=== PATIENT | female | born 1950 | race Caucasian/White ===

== ENCOUNTER 2018-10-18 20:01 | Inpatient (IN) ==
[2018-10-18 23:22] LABS: Basophils % 0.1 %; Hemoglobin 11.8 g/dL (11.5-15.4); Immature Granulocytes % 0.5 % (0-4); Lymphocytes # 0.3 K/mcL (0.6-4.6); Mean Corpuscular HGB Conc 33.7 g/dL (31.6-35.5); Mean Corpuscular Hemoglobin 31.4 pg (28.0-33.3); Mean Corpuscular Volume 93.1 fL (83.0-100.0); Mean Platelet Volume 10.9 fL (9.4-12.4); Monocytes # 0.2 K/mcL (0.0-1.3); Monocytes % 2.1 %; Neutrophils # 9.3 K/mcL (1.6-8.9); Platelet Count 214 K/mcL (140-400); Red Blood Count 3.76 M/mcL (3.82-4.97); Red Cell Distribution Width 11.7 % (11.5-14.5); Segmented Neutrophils % 94.3 %
[2018-10-18 23:33] LABS: INR 1.1; Prothrombin Time 12.9 Seconds (9.4-12.1)
[2018-10-18 23:36] LABS: Activated Partial Thrombo Time 28.4 Seconds (26.0-36.0)
[2018-10-18 23:41] LABS: Alanine Aminotransferase 18 Units/L (7-52); Albumin 3.7 g/dL (3.5-5.7); Albumin/Globulin Ratio 1.1 (1.1-2.2); Alkaline Phosphatase 60 Units/L (34-104); Aspartate Amino Transferase 16 Units/L (13-39); BUN/Creatinine Ratio 13 (6-26); Bilirubin,Direct 0.1 mg/dL (0.0-0.2); Bilirubin,Indirect 0.3 mg/dL (0.0-1.2); Bilirubin,Total 0.4 mg/dL (0.3-1.0); Blood Urea Nitrogen 12 mg/dL (8-23); Calcium 8.7 mg/dL (8.6-10.3); Carbon Dioxide 21 mEq/L (23-29); Chloride 100 mEq/L (98-107); Globulin 3.4 g/dL (2.4-3.5); Glucose 319 mg/dL (70-105); Osmolality,Calculated 294 (280-300); Potassium 3.3 mEq/L (3.5-5.1); Sodium 136 mEq/L (136-145); Total Protein 7.1 g/dL (6.4-8.9); eGFR For Non-African Americans > 60 (> 60)
[2018-10-18] MEDS ORDERED: Ipratropium/Albuterol Neb 3 ML IH ONE (23:45)
[2018-10-18] MEDS ORDERED: Potassium Chloride Elixir 20 MEQ/15 ML UDC PO ONE (23:45)
[2018-10-18] MEDS ORDERED: *HR* HYDROcodone/Acet 5/325 mg TABLET PO PRN (23:57)
--- NOTE | 2018-10-19 01:37 | Internal Med History&Physical ---
Date of Encounter: 10/19/18 Time of Encounter: 01:35 Internal Medicine - H&P: HPI Chief complaint: Weakness Admitted From: Home Plans for Post Hospital Care: Home History of present illness: Rani De Jesus is a 68 year old woman with a history of psoriatic arthritis who presents on transfer from [place] emergency room where she went with 4 days of productive cough, eyes malaise, poor appetite and chest discomfort. She was seen at her primary care physicians office yesterday and given breathing treatments due to these complaints but was also noted that her blood pressure was low and her heart rate high so she was sent to the emergency room for further evaluation. On arrival there she was hemodynamically stable but complained of feeling tired. She was seen to have an elevated leukocyte cou nt and increase in her serum creatinine from her baseline. Chest x-ray was suggestive of a left sided infiltrate concerning for developing pneumonia and she was started on fluids and antibiotics. He is transferred here for further care. On my assessment she complains of feeling thirsty and dehydrated and just generally fatigued. She remains on 2.5 mg prednisone daily for her rheumatologic condition as well as infliximab infusions every 2 months. Past Med Surg Social Fam HX - Past Medical History Medical history: arthritis, COPD, hyperlipidemia, hypertension Additional medical history: lung cancer Psychiatric history: no psych history - Past Surgical History Surgical History: hysterectomy Additional surgical history: back surgery, right upper lobectomy - Social History Smoking Status: Former smoker Smokeless Tobacco Status: No Alcohol use: occasionally Drug use: none - Family History Mother Living Status: Hx Family Cardiac Disorders: Yes Internal Medicine - H&P: Meds Atorvastatin [Lipitor] 10 mg PO HS 08/23/15 [History] Brimonidine Tartrate/Timolol [Combigan Eye Drops] 2 drp OP DAILY 08/23/15 [History] Hydrocodone/Acetaminophen [[place] 5-325 Tablet] 1 tab PO Q6H PRN #10 tab 08/23/15 [Rx] InFLIXimab [Remicade (For Outpatient Infusion)] 0 mg IV Q8W 08/23/15 [History] Lisinopril/Hydrochlorothiazide [Zestoretic 10-12.5 mg Tablet] 1 each PO DAILY 08/23/15 [History] Omeprazole [PriLOSEC] 20 mg PO DAILY 08/23/15 [History] TraMADol [Ultram] 100 mg PO DAILY 08/23/15 [History] predniSONE [Prednisone] 2.5 mg PO DAILY 08/23/15 [History] Allergy/AdvReac Type Severity Reaction Status Date / Time Amoxicillin [From Augmentin] Allergy Hives Verified 08/23/15 18:12 clavulanic acid Allergy Hives Verified 08/23/15 18:12 [From Augmentin] clindamycin Allergy Hives Verified 08/23/15 18:12 All Systems PM: A 10-system review of systems was performed and is negative for pertinent findings except as documented above in the HPI. - Constitutional Vitals: Temp Pulse Resp BP Pulse Ox 97.5 F L 101 14 154/76 97 10/18/18 23:08 10/18/18 23:08 10/18/18 23:08 10/18/18 23:08 10/18/18 23:08 Exam: Vitals: Reviewed General: Well developed woman lying in bed notably asthenic Skin: Warm and supple HEENT: Slightly dry mucous membranes. No conjunctivae pallor. Neck: No lymphadenopathy. No JVD. No carotid bruits. No palpable thyroid. Chest: Normal thoracic expansion. Scattered wheezes noted. Heart: Normal S1 & S2; rhythmic. No rubs or murmurs. Abdomen: Non-distended, soft and non-tender to palpation. No peritoneal reaction. Extremities: No clubbing, cyanosis or edema. No calf tenderness. Normal distal pulses. Neurological: Awake, alert and oriented to person, place and time. No focal deficits. Psych: Affect appropriate. Internal Med - H&P Results - Labs CBC & Chem 7: 10/18/18 23:08 10/18/18 23:08 Labs: Short CBC 10/18/18 Range/Units 23:08 WBC 9.8 (4.3-11.1) K/mcL Hgb 11.8 (11.5-15.4) g/dL Hct 35.0 L (35.3-44.9) % Plt Count 214 (140-400) K/mcL Neutrophils # 9.3 H (1.6-8.9) K/mcL BMP 10/18/18 23:08 Sodium 136 Potassium 3.3 L Chloride 100 Carbon Dioxide 21 L BUN 12 Creatinine 0.89 Glucose 319 H Calcium 8.7 Liver Function 01/03/19 Range/Units 23:08 Total Bilirubin 0.4 (0.3-1.0) mg/dL Direct Bilirubin 0.1 (0.0-0.2) mg/dL AST 16 (13-39) Units/L ALT 18 (7-52) Units/L Alkaline Phosphatase 60 (34-104) Units/L Albumin 3.7 (3.5-5.7) g/dL - Assessment and plan (1) Pneumonia Current Visit: Yes Status: Acute Assessment and plan: The patient reports respiratory symptoms with sick contacts; has an infiltrate noted on xray and lab studies suggestive of infection. This is community acq uired. Will continue levofloxacin daily. Sputum culture should be obtained. Urine Legionella/Strep Ag ordered. Qualifiers: Pneumonia type: due to unspecified organism Laterality: left Lung location: lower lobe of lung Qualified Code(s): J18.1 - Lobar pneumonia, unspecified organism (2) Sepsis Current Visit: Yes Status: Acute Assessment and plan: As evidenced by tachycardia, lactic acidemia and leukocytosis. Concern for pulmonary source. Cultures and fluids administered accordingly. Empiric abx started as indicated. Qualifiers: Sepsis type: sepsis due to unspecified organism Qualified Code(s): A41.9 - Sepsis, unspecified organism (3) Acute kidney injury (nontraumatic) Current Visit: Yes Status: Acute Assessment and plan: Likely secondary to volume depletion as her family members report reduced oral intake over the past few days. This coupled with her initial sepsis presentation. Will replete with volume and re-evaluate. (4) Dehydration Current Visit: Yes Status: Acute Assessment and plan: As evidenced on clinical exam and contributing factor to TERESE. IVF ordered. Regular diet. (5) Psoriatic arthritis Current Visit: Yes Status: Acute Assessment and plan: Continue daily prednisone to avoid adrenal insufficiency. She will continue infliximab as OP. (6) DVT prophylaxis Current Visit: Yes Status: Acute Assessment and plan: SubQ heparin. - Time Spent With Patient Total time spent is greater than 50% in coordination of care (as documented) at patient's floor/unit and/or counseling patient: Greater than 35 minutes
[2018-10-19] MEDS: Ringers Solution, Lactated 1,000 ML IVC SCH ×2 (01:42→09:29)
[2018-10-19 03:16] LABS: Basophils % 0.1 %; Hematocrit 34.2 % (35.3-44.9); Hemoglobin 11.4 g/dL (11.5-15.4); Immature Granulocytes % 0.5 % (0-4); Lymphocytes # 0.4 K/mcL (0.6-4.6); Lymphocytes % 4.9 %; Mean Corpuscular HGB Conc 33.3 g/dL (31.6-35.5); Mean Corpuscular Hemoglobin 31.1 pg (28.0-33.3); Mean Corpuscular Volume 93.2 fL (83.0-100.0); Mean Platelet Volume 10.7 fL (9.4-12.4); Monocytes # 0.3 K/mcL (0.0-1.3); Neutrophils # 7.7 K/mcL (1.6-8.9); Platelet Count 227 K/mcL (140-400); Red Blood Count 3.67 M/mcL (3.82-4.97); Red Cell Distribution Width 11.6 % (11.5-14.5); Segmented Neutrophils % 91.5 %
[2018-10-19 03:36] LABS: BUN/Creatinine Ratio 15 (6-26); Blood Urea Nitrogen 12 mg/dL (8-23); Carbon Dioxide 23 mEq/L (23-29); Chloride 102 mEq/L (98-107); Glucose 286 mg/dL (70-105); Osmolality,Calculated 292 (280-300); Potassium 4.3 mEq/L (3.5-5.1); Sodium 136 mEq/L (136-145); eGFR For Non-African Americans > 60 (> 60)
[2018-10-19] MEDS: *HR* Heparin 5,000 UNIT/ML VIAL SQ SCH ×2 (05:40→16:39)
[2018-10-19] MEDS ORDERED: Levofloxacin 500 MG/100 ML 500 MG/100 ML BAG IVPB SCH (09:00)
[2018-10-19] MEDS ORDERED: predniSONE 5 MG TABLET PO SCH (09:00)
--- NOTE | 2018-10-19 09:33 | Internal Med Progress Note ---
<Asif Becker R - Last Filed: 10/19/18 11:10> Hospitalist Progress Note - Encounter Date of Encounter: 10/19/18 Time of Encounter: 08:45 - Subjective Interval History: Patient was seen and evaluated at the bedside this morning. She reports feeling quite a bit better than when she presented yesterday. Cough is less productive but still present. Denies n/v, change in bowels, chest pain, shortness of breath, dizziness. - Exam Vitals: Temp Pulse Resp BP Pulse Ox 97.3 F L 69 17 100/67 97 10/19/18 07:32 10/19/18 07:32 10/19/18 07:32 10/19/18 07:32 10/19/18 07:32 Exam: General: Seated upright in bed, no apparent distress. HEENT: Atraumatic, Pupils PERRLA, moist mucous membranes Neck: soft, no lymphadenopathy Cardio: Regular rate and rhythm, no murmurs, rubs or gallops Respiratory: Clear to auscultation bilateral, no crackles, wheeze, or rhonchi Abdomen: soft, nontender, nondistended Extremities: No swelling or edema Neuro: Alert and oriented to person, place, and time, no focal deficits Psych: appropriate mood and affect - Assessment and Plan (1) Sepsis Current Visit: Yes Status: Acute Assessment and Plan: Met sepsis criteria at presentation with Lactic acidosis, tachycardia, leukocytosis. Chest x-ray concerning for consolidation. Improved today with IV fluids and antibiotics Patient is on ocean biologist prednisone 2.5 mg daily, Will follow BP closely and give stress steroids if indicated (2) Pneumonia Current Visit: Yes Status: Acute Assessment and Plan: Chest xray concerning for consolidation of the the left perihilar region on PA radiograph. Negative influenza Suspect community acquired pneumonia Plan: Continue IV antibiotics with Levoquin, will transition to PO prior to discharge Has received fluid resuscitation, will decrease IV fluids Sputum culture pending Legionella/strep pneumo antigens pending (3) Acute kidney injury (nontraumatic) Current Visit: Yes Status: Acute Assessment and Plan: TERESE on admission with creatinine of 1.2 Suspect this is secondary to dehydration from poor oral intake in recent days. Resolved with IV fluids, creatinine 0.82 Plan: Continue to follow Scr and urine output (4) Dehydration Current Visit: Yes Status: Acute Assessment and Plan: Dehydration with TERESE upon admission Has been volume resuscitated Tolerating oral intake, will decrease IVF rate. (5) Psoriatic arthritis Current Visit: Yes Status: Acute Assessment and Plan: Continue 2.5 mg prednisone Stress dose steroids if clinical decline (6) COPD (chronic obstructive pulmonary disease) Current Visit: Yes Status: Acute Assessment and Plan: COPD without exacerbation, no home oxygen requirement PRN albuterol at home Plan: Duonebs q6h PRN (7) Hypertension Current Visit: Yes Status: Acute Assessment and Plan: Continue home lisinopril/HCTZ (8) DVT prophylaxis Current Visit: Yes Status: Acute Assessment and Plan: SubQ heparin 5000 units SQ TID (9) Diabetes mellitus Current Visit: Yes Status: Acute Assessment and Plan: Type 2 diabetic on Glipizide at home Plan: Hold home glipizide Start Sliding scale insulin ACHS Will follow and add basal insulin for adequate glycemic control if needed - Time Spent with Patient Total time spent is greater than 50% in coordination of care (as documented) at patient's floor/unit and/or counseling patient: Internal Medicine: Result - Labs CBC & Chem 7: 10/19/18 03:04 10/19/18 03:04 Labs: Short CBC 10/18/18 10/19/18 Range/Units 23:08 03:04 WBC 9.8 8.4 (4.3-11.1) K/mcL Hgb 11.8 11.4 L (11.5-15.4) g/dL Hct 35.0 L 34.2 L (35.3-44.9) % Plt Count 214 227 (140-400) K/mcL Neutrophils # 9.3 H 7.7 (1.6-8.9) K/mcL BMP 10/18/18 10/19/18 23:08 03:04 Sodium 136 136 Potassium 3.3 L 4.3 D Chloride 100 102 Carbon Dioxide 21 L 23 BUN 12 12 Creatinine 0.89 0.82 Glucose 319 H 286 H Calcium 8.7 9.0 Liver Function 10/18/18 Range/Units 23:08 Total Bilirubin 0.4 (0.3-1.0) mg/dL Direct Bilirubin 0.1 (0.0-0.2) mg/dL AST 16 (13-39) Units/L ALT 18 (7-52) Units/L Alkaline Phosphatase 60 (34-104) Units/L Albumin 3.7 (3.5-5.7) g/dL - ABG Interpretation ABG results: PT/INR, D-dimer PT 12.9 Seconds (9.4-12.1) H 10/18/18 23:08 Consult Discharge Plan - Plan Referrals: Betty Gonzalez, SIGN LANGUAGE INSTRUCTOR [Primary Care Provider] - <LesleyelmcDominic Césareugenia - Last Filed: 10/19/18 13:44> Hospitalist Progress Note - Encounter Date of Encounter: 10/19/18 - Exam Vitals: Temp Pulse Resp BP Pulse Ox 98.1 F 94 18 137/67 95 10/19/18 11:06 10/19/18 11:06 10/19/18 11:06 10/19/18 11:06 10/19/18 11:06 - Assessment and Plan (1) Sepsis Current Visit: Yes Status: Acute (2) Pneumonia Current Visit: Yes Status: Acute (3) Acute kidney injury (nontraumatic) Current Visit: Yes Status: Acute (4) Dehydration Current Visit: Yes Status: Acute (5) Psoriatic arthritis Current Visit: Yes Status: Acute (6) DVT prophylaxis Current Visit: Yes Status: Acute (7) COPD (chronic obstructive pulmonary disease) Current Visit: Yes Status: Acute (8) Hypertension Current Visit: Yes Status: Acute (9) Diabetes mellitus Current Visit: Yes Status: Acute - Time Spent with Patient Total time spent is greater than 50% in coordination of care (as documented) at patient's floor/unit and/or counseling patient: Internal Medicine: Result - Labs CBC & Chem 7: 10/19/18 03:04 10/19/18 03:04 Labs: Short CBC 10/18/18 10/19/18 Range/Units 23:08 03:04 WBC 9.8 8.4 (4.3-11.1) K/mcL Hgb 11.8 11.4 L (11.5-15.4) g/dL Hct 35.0 L 34.2 L (35.3-44.9) % Plt Count 214 227 (140-400) K/mcL Neutrophils # 9.3 H 7.7 (1.6-8.9) K/mcL BMP 10/18/18 10/19/18 23:08 03:04 Sodium 136 136 Potassium 3.3 L 4.3 D Chloride 100 102 Carbon Dioxide 21 L 23 BUN 12 12 Creatinine 0.89 0.82 Glucose 319 H 286 H Calcium 8.7 9.0 Liver Function 10/18/18 Range/Units 23:08 Total Bilirubin 0.4 (0.3-1.0) mg/dL Direct Bilirubin 0.1 (0.0-0.2) mg/dL AST 16 (13-39) Units/L ALT 18 (7-52) Units/L Alkaline Phosphatase 60 (34-104) Units/L Albumin 3.7 (3.5-5.7) g/dL - ABG Interpretation ABG results: PT/INR, D-dimer PT 12.9 Seconds (9.4-12.1) H 10/18/18 23:08 - Attending Attestation I examined this patient and my medical decision-making was reviewed with the Resident Physician. I agree with the documented findings, disposition and treatment plan as described except to the extent set forth below. Patient doing well, no acute events. Denies CP, fevers/chills, n/v. No respiratory distress. Physical exam, patient no acute distress, faint wheezing. Vitals: reviewed, Labs: reviewed, renal function now normal. For sepsis secondary to pneumonia, continue Levaquin, Duo Nebs, follow-up blood cultures. <Asif Becker - Last Filed: 10/19/18 11:10> (1) Sepsis Qualifiers: Sepsis type: sepsis due to unspecified organism Qualified Code(s): A41.9 - Sepsis, unspecified organism (2) Pneumonia Qualifiers: Pneumonia type: due to unspecified organism Laterality: left Lung location: lower lobe of lung Qualified Code(s): J18.1 - Lobar pneumonia, unspecified organism (6) COPD (chronic obstructive pulmonary disease) Qualifiers: COPD type: unspecified COPD Qualified Code(s): J44.9 - Chronic obstructive pulmonary disease, unspecified (9) Diabetes mellitus Qualifiers: Diabetes mellitus type: type 2 Diabetes mellitus ocean biologist insulin use: wi thout nursing home use Diabetes mellitus complication status: with unspecified complications Qualified Code(s): E11.8 - Type 2 diabetes mellitus with u nspecified complications <Arielle Arellano - Last Filed: 10/19/18 13:44> (1) Sepsis Qualifiers: Sepsis type: sepsis due to unspecified organism Qualified Code(s): A41.9 - Sepsis, unspecified organism (2) Pneumonia Qualifiers: Pneumonia type: due to unspecified organism Laterality: left Lung location: lower lobe of lung Qualified Code(s): J18.1 - Lobar pneumonia, unspecified organism (7) COPD (chronic obstructive pulmonary disease) Qualifiers: COPD type: unspecified COPD Qualified Code(s): J44.9 - Chronic obstructive pulmonary disease, unspecified (9) Diabetes mellitus Qualifiers: Diabetes mellitus type: type 2 Diabetes mellitus ocean biologist insulin use: without ocean biologist use Diabetes mellitus complication status: with unspecified complications Qualified Code(s): E11.8 - Type 2 diabetes mellitus with unspecified complications
[2018-10-19] MEDS ORDERED: Dextrose Gel 15 GM/37.5 ML TUBE PO PRN ×2 (09:34)
[2018-10-19] MEDS ORDERED: *HR* Dextrose 50 % in Water (Syg) 50 ML SYRINGE IVP PRN (09:34)
[2018-10-19] MEDS ORDERED: D5% in Water 1,000 ML IVC PRN (09:34)
[2018-10-19 11:11] LABS: Estimated Average Glucose 163 mg/dl; Hemoglobin A1C 7.3 %
[2018-10-19] MEDS: Insulin LISPRO 300 UNITS/3 ML VIAL SQ SCH ×3 (12:13→20:57)
[2018-10-19] MEDS: Ipratropium/Albuterol Neb 3 ML IH PRN (14:26)
[2018-10-20] MEDS: Ipratropium/Albuterol Neb 3 ML IH PRN ×2 (04:16→10:56)
[2018-10-20] MEDS: *HR* Heparin 5,000 UNIT/ML VIAL SQ SCH ×2 (05:39→17:24)
[2018-10-20 07:33] LABS: Basophils % 0.2 %; Eosinophils % 0.3 %; Hematocrit 33.2 % (35.3-44.9); Hemoglobin 11.1 g/dL (11.5-15.4); Immature Granulocytes % 0.5 % (0-4); Lymphocytes # 1.6 K/mcL (0.6-4.6); Mean Corpuscular HGB Conc 33.4 g/dL (31.6-35.5); Mean Corpuscular Hemoglobin 30.7 pg (28.0-33.3); Mean Corpuscular Volume 91.7 fL (83.0-100.0); Mean Platelet Volume 10.9 fL (9.4-12.4); Monocytes # 0.9 K/mcL (0.0-1.3); Neutrophils # 7.4 K/mcL (1.6-8.9); Platelet Count 270 K/mcL (140-400); Red Blood Count 3.62 M/mcL (3.82-4.97); Red Cell Distribution Width 11.8 % (11.5-14.5)
[2018-10-20 07:47] LABS: BUN/Creatinine Ratio 21 (6-26); Blood Urea Nitrogen 14 mg/dL (8-23); Calcium 9.5 mg/dL (8.6-10.3); Carbon Dioxide 25 mEq/L (23-29); Chloride 103 mEq/L (98-107); Glucose 232 mg/dL (70-105); Osmolality,Calculated 294 (280-300); Potassium 3.8 mEq/L (3.5-5.1); Sodium 138 mEq/L (136-145); eGFR For Non-African Americans > 60 (> 60)
[2018-10-20] MEDS: Lisinopril-HCTZ 20-12.5mg TABLET PO SCH (08:31)
[2018-10-20] MEDS: Levofloxacin 750 MG/150 ML 750 MG/150 ML BAG IVPB SCH (08:32)
[2018-10-20] MEDS: Insulin LISPRO 300 UNITS/3 ML VIAL SQ SCH ×4 (08:33→21:10)
[2018-10-20] MEDS ORDERED: predniSONE 5 MG TABLET PO SCH (09:00)
--- NOTE | 2018-10-20 11:40 | Internal Med Progress Note ---
Hospitalist Progress Note - Encounter Date of Encounter: 10/20/18 Time of Encounter: 11:39 - Subjective Interval History: No acute events. Patient having several coughing episodes. Still some dyspnea, but had slight improvement. - Exam Vitals: Temp Pulse Resp BP Pulse Ox 98.1 F 95 16 151/76 97 10/20/18 10:33 10/20/18 10:33 10/20/18 10:33 10/20/18 10:33 10/20/18 10:33 Exam: General: Seated upright in bed, no apparent distress. HEENT: Atraumatic, Pupils PERRLA, moist mucous membranes Neck: soft, no lymphadenopathy Cardio: Regular rate and rhythm, no murmurs, rubs or gallops Respiratory: There is more prominent diffuse wheezing today. Abdomen: soft, nontender, nondistended Extremities: No swelling or edema Neuro: Alert and oriented to person, place, and time, no focal deficits Psych: appropriate mood and affect - Assessment and Plan (1) Sepsis Current Visit: Yes Status: Acute Assessment and Plan: Met sepsis criteria at presentation with Lactic acidosis, tachycardia, leukocytosis. Chest x-ray concerning for consolidation. Improved today with IV fluids and antibiotics Patient is on long-term prednisone 2.5 mg daily, Will follow BP closely and give stress steroids if indicated Still having significant wheezing despite Duo Nebs Will add Prednisone 40 mg daily for short burst Likely home tomorrow if blood cultures remain negative. (2) Pneumonia Current Visit: Yes Status: Acute Assessment and Plan: Chest xray concerning for consolidation of the the left perihilar region on PA radiograph. Negative influenza Suspect community acquired pneumonia Plan: Continue IV antibiotics with Levoquin, will transition to PO prior to discharge Has received fluid resuscitation, will decrease IV fluids Sputum culture pending Legionella/strep pneumo antigens pending (3) Acute kidney injury (nontraumatic) Current Visit: Yes Status: Acute Assessment and Plan: TERESE on admission with creatinine of 1.2 Suspect this is secondary to dehydration from poor oral intake in recent days. Resolved with IV fluids, creatinine 0.82 Plan: Continue to follow Scr and urine output (4) Dehydration Current Visit: Yes Status: Acute Assessment and Plan: Dehydration with TERESE upon admission Has been volume resuscitated Tolerating oral intake, will decrease IVF rate. (5) Psoriatic arthritis Current Visit: Yes Status: Acute Assessment and Plan: Continue 2.5 mg prednisone Stress dose steroids if clinical decline (6) DVT prophylaxis Current Visit: Yes Status: Acute Assessment and Plan: SubQ heparin 5000 units SQ TID (7) COPD (chronic obstructive pulmonary disease) Current Visit: Yes Status: Acute Assessment and Plan: COPD without exacerbation, no home oxygen requirement PRN albuterol at home Plan: Duonebs q6h PRN (8) Hypertension Current Visit: Yes Status: Acute Assessment and Plan: Continue home lisinopril/HCTZ (9) Diabetes mellitus Current Visit: Yes Status: Acute Assessment and Plan: Type 2 diabetic on Glipizide at home Plan: Hold home glipizide Start Sliding scale insulin ACHS Will follow and add basal insulin for adequate glycemic control if needed - Time Spent with Patient Total time spent is greater than 50% in coordination of care (as documented) at patient's floor/unit and/or counseling patient: Internal Medicine: Result - Labs CBC & Chem 7: 10/20/18 05:40 10/20/18 05:40 Labs: Short CBC 10/20/18 Range/Units 05:40 WBC 10.0 (4.3-11.1) K/mcL Hgb 11.1 L (11.5-15.4) g/dL Hct 33.2 L (35.3-44.9) % Plt Count 270 (140-400) K/mcL Neutrophils # 7.4 (1.6-8.9) K/mcL BMP 10/20/18 05:40 Sodium 138 Potassium 3.8 Chloride 103 Carbon Dioxide 25 BUN 14 Creatinine 0.67 Glucose 232 H Calcium 9.5 - ABG Interpretation ABG results: PT/INR, D-dimer PT 12.9 Seconds (9.4-12.1) H 10/18/18 23:08 Consult Discharge Plan - Plan Referrals: Betty Gonzalez, REPRESENTATIVE [Primary Care Provider] - (1) Sepsis Qualifiers: Sepsis type: sepsis due to unspecified organism Qualified Code(s): A41.9 - Sepsis, unspecified organism (2) Pneumonia Qualifiers: Pneumonia type: due to unspecified organism Laterality: left Lung location: lower lobe of lung Qualified Code(s): J18.1 - Lobar pneumonia, unspecified organism (7) COPD (chronic obstructive pulmonary disease) Qualifiers: COPD type: unspecified COPD Qualified Code(s): J44.9 - Chronic obstructive pulmonary disease, unspecified (9) Diabetes mellitus Qualifiers: Diabetes mellitus type: type 2 Diabetes mellitus long-term insulin use: without long-term use Diabetes mellitus complication status: with unspecified complications Qualified Code(s): E11.8 - Type 2 diabetes mellitus with unspecified complications
[2018-10-20] MEDS: predniSONE 20 MG TABLET PO SCH (14:06)
[2018-10-21 04:48] LABS: Basophils % 0.3 %; Hematocrit 33.8 % (35.3-44.9); Hemoglobin 11.6 g/dL (11.5-15.4); Immature Granulocytes % 0.8 % (0-4); Lymphocytes # 0.9 K/mcL (0.6-4.6); Mean Corpuscular HGB Conc 34.3 g/dL (31.6-35.5); Mean Corpuscular Hemoglobin 31.1 pg (28.0-33.3); Mean Corpuscular Volume 90.6 fL (83.0-100.0); Mean Platelet Volume 10.8 fL (9.4-12.4); Monocytes # 0.5 K/mcL (0.0-1.3); Neutrophils # 5.7 K/mcL (1.6-8.9); Platelet Count 295 K/mcL (140-400); Red Blood Count 3.73 M/mcL (3.82-4.97); Red Cell Distribution Width 11.8 % (11.5-14.5); Segmented Neutrophils % 78.9 %
[2018-10-21] MEDS: *HR* Heparin 5,000 UNIT/ML VIAL SQ SCH (05:39)
[2018-10-21] MEDS: Levofloxacin 750 MG/150 ML 750 MG/150 ML BAG IVPB SCH (07:51)
[2018-10-21] MEDS: Lisinopril-HCTZ 20-12.5mg TABLET PO SCH (07:56)
[2018-10-21] MEDS: predniSONE 20 MG TABLET PO SCH (07:56)
[2018-10-21] MEDS: Insulin LISPRO 300 UNITS/3 ML VIAL SQ SCH ×2 (07:58→12:07)
[2018-10-21] MEDS: Ipratropium/Albuterol Neb 3 ML IH PRN (08:11)
[2018-10-21 10:50] VITALS: BP 148/65
--- NOTE | 2018-10-21 11:27 | Discharge Summary ---
- NOTES TO OUTPATIENT PROVIDER Notes to Outpatient Provider: Prednisone taper on DC, need to monitor if patient continues to improve. Assess if patient should stay on infliximab, now that recovering from pneumonia. Orders not resulted at time of discharge: Pending orders 10/18/18 22:23 Culture,Sputum with Gram Stain [RM] Stat 10/18/18 23:08 Culture,Blood [BC] Stat 10/19/18 01:49 Legionella Antigen [RM] Stat Streptococcal pneumoniae urin antigen [S. Pneumoniae Antigen] [RM] Stat Date of Encounter: 10/21/18 Time of Encounter: 11:25 - Discharge Diagnosis (1) Sepsis Priority: Primary Status: Acute Qualifiers: Sepsis type: sepsis due to unspecified organism Qualified Code(s): A41.9 - Sepsis, unspecified organism (2) Pneumonia Priority: Secondary Status: Acute Qualifiers: Pneumonia type: due to unspecified organism Laterality: left Lung location: lower lobe of lung Qualified Code(s): J18.1 - Lobar pneumonia, unspecified organism (3) Acute kidney injury (nontraumatic) Priority: Secondary Status: Acute (4) Dehydration Priority: Secondary Status: Acute (5) Psoriatic arthritis Priority: Secondary Status: Acute (6) DVT prophylaxis Priority: Secondary Status: Acute (7) COPD (chronic obstructive pulmonary disease) Priority: Secondary Status: Acute Qualifiers: COPD type: unspecified COPD Qualified Code(s): J44.9 - Chronic obstructive pulmonary disease, unspecified (8) Hypertension Priority: Secondary Status: Acute Qualifiers: Hypertension type: essential hypertension Qualified Code(s): I10 - Essential (primary) hypertension (9) Diabetes mellitus Priority: Secondary Status: Acute Qualifiers: Diabetes mellitus type: type 2 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 She was seen at her primary care physicians office yesterday and given breathing treatments due to these complaints but was also noted that her blood pressure was low and her heart rate high so she was sent to the emergency room for further evaluation. On arrival there she was hemodynamically stable but complained of feeling tired. She was seen to have an elevated leukocyte count and increase in her serum creatinine from her baseline. Chest x-ray was suggestive of a left sided infiltrate concerning for developing pneumonia and she was started on fluids and antibiotics. He is transferred here for further care. She remains on 2.5 mg prednisone daily for her rheumatologic condition as well as infliximab infusions every 2 months. She was admitted for treatment of sepsis from pneumonia. She had TERESE which resolved after IV fluids. She was started on Levaquin for pneumonia, and also required Duo Nebs and Prednisone. She clinically improved. Blood cultures on admission were negative for greater than 48 hours and blood cultures obtained from [facility] were also negative. She was discharged home in stable condition to complete Levaquin and Prednisone taper. She has nebulizer at home instructed to take scheduled and space out as tolerated. - Time Spent with Patient Total time spent providing and/or coordinating discharge services: - Discharge Medications Home Medications: predniSONE [Prednisone] 2.5 mg PO DAILY 08/23/15 [History] Atorvastatin [Lipitor] 10 mg PO DAILY 10/19/18 [History] GlipiZIDE [Glipizide Xl] 5 mg PO DAILY 10/19/18 [History] InFLIXimab [Remicade] 0 mg IV Q8W 10/19/18 [History] Lisinopril-HCTZ 20-12.5 [Prinzide 20-12.5] 1 each PO DAILY 10/19/18 [History] Omeprazole [PriLOSEC] 20 mg PO DAILY 10/19/18 [History] Allergies/Adverse Reactions: Allergy/AdvReac Type Severity Reaction Status Date / Time Amoxicillin [From Augmentin] Allergy Severe Hives Verified 10/19/18 14:44 clavulanic acid Allergy Severe Hives Verified 10/19/18 14:44 [From Augmentin] clindamycin Allergy Severe Hives Verified 10/19/18 14:44 Date of admission: 10/19/18 14:49 Primary care physician: Betty Gonzalez CNP - Constitutional Vitals: Temp Pulse Resp BP Pulse Ox 98.2 F 100 17 148/65 98 10/21/18 10:49 10/21/18 10:49 10/21/18 10:49 10/21/18 10:49 10/21/18 10:49 Exam: General: Seated upright in bed, no apparent distress. HEENT: Atraumatic, Pupils PERRLA, moist mucous membranes Neck: soft, no lymphadenopathy Cardio: Regular rate and rhythm, no murmurs, rubs or gallops Respiratory: + wheezing scattered, slight improvement since yesterday exam. Abdomen: soft, nontender, nondistended Extremities: No swelling or edema Neuro: Alert and oriented to person, place, and time, no focal deficits Psych: appropriate mood and affect - Patient Status Disposition: Home, Self-Care Condition: Good Functional capacity at discharge: independent ambulation Overall status at discharge: patient is progressing back to baseline - Discharge Instructions Follow Up With: Betty Gonzalez CNP [Primary Care Provider] - Additional Instructions: Follow-up primary care in 3 days. - Diet and Activity Activity: return to work once cleared by your PCP/specialist Diet: advance to your usual diet
== END 2018-10-21 12:14 | disposition home or self-care (01) | DRG 871 ==
LOC: 3ANU → SUATTDRO 22:14
PROVIDERS: ADMIT Internal Medicine; ATTEND Student in an Organized Health Care Education/Training Program